=== PATIENT | female | born 1960 | race Caucasian/White ===

== ENCOUNTER → 2023-12-05 09:56 | Outpatient (REF) | payer BC, SELFPAY | LOC: WDC 09:56 | PROVIDERS: ATTENDING PHYSICIAN Obstetrics & Gynecology; FAMILY PHYSICIAN Physician Assistant Medical | DX: R92.2 Inconclusive mammogram (principal) | CPT/HCPCS: 76641 ==

== ENCOUNTER → 2023-12-20 06:25 | Day surgery (SDC) | payer BC, SELFPAY | LOC: GI 06:25 | PROVIDERS: ATTENDING PHYSICIAN Internal Medicine Gastroenterology; FAMILY PHYSICIAN Physician Assistant Medical | DX: K51.50 Left sided colitis without complications (principal); K62.1 Rectal polyp | CPT/HCPCS: 45380; 88305 ==

== ENCOUNTER → 2024-03-24 08:46 | Outpatient (REF) | payer BC, SELFPAY | LOC: RAD 08:46 | PROVIDERS: ATTENDING PHYSICIAN Internal Medicine; FAMILY PHYSICIAN Physician Assistant Medical | DX: Z51.81 Encounter for therapeutic drug level monitoring (principal); M81.0 Age-related osteoporosis without current pathological fracture | CPT/HCPCS: 77080 ==

== ENCOUNTER → 2024-03-30 08:37 | Outpatient (REF) | payer BC, SELFPAY | LOC: WDC 08:37 | PROVIDERS: ATTENDING PHYSICIAN Obstetrics & Gynecology; FAMILY PHYSICIAN Physician Assistant Medical | DX: Z12.31 Encounter for screening mammogram for malignant neoplasm of breast (principal) | CPT/HCPCS: 77063; 77067 ==